=== PATIENT | male | born 1960 | race Caucasian/White ===

== ENCOUNTER 2023-01-21 08:37 | Outpatient (CLI) | payer BC, OTHER ==
[2023-01-21] MEDS ORDERED: Magnevist 469MG/ML 20 ML VIAL ONE (15:18)
== END 2023-01-21 08:38 | disposition home or self-care (01) ==
LOC: MRI 08:37
PROVIDERS: ATTEND Psychiatry & Neurology Neurology
DX: G50.0 Trigeminal neuralgia (principal)
CPT/HCPCS: 70553; A9579